=== PATIENT | female | born 1935 | race Caucasian/White ===

== ENCOUNTER 2018-03-22 11:03 | Emergency (ER) | payer OTHER, MEDICARE ==
--- NOTE | 2018-03-22 12:34 | ER ---
Nurse's Notes [facility] Name: Tarsha Daniels Age: 82 yrs Sex: Female : 1935 Arrival Date: 03/22/2018 Time: 11:08 Bed 17 Private MD: Diagnosis: Impacted cerumen, bilateral Presentation: 03/22 11:17 Presenting complaint: Patient states: left ear pain 7/10. Pt. stated, "I have been on rb1 Augmentin for 6 days but it isn't getting any better.". Transition of care: patient was not received from another setting of care. Onset of symptoms is unknown. Initial Sepsis Screen: Does the patient meet any 2 criteria? No. Patient's initial sepsis screen is negative. Does the patient have a suspected source of infection? No. Patient's initial sepsis screen is negative. Care prior to arrival: Medication(s) given: Augmentin. 11:17 Method Of Arrival: Ambulatory rb1 11:17 Acuity: NORA 4 rb1 Triage Assessment: 11:17 General: Appears in no apparent distress. comfortable, Behavior is calm, cooperative. rb1 General: Denies fever. Pain: Complains of pain in left ear Pain currently is 7 out of 10 on a pain scale. Pain began unknown. Neuro: Level of Consciousness is awake, alert, obeys commands, Oriented to person, place, time, situation. Cardiovascular: Capillary refill < 3 seconds is brisk in bilateral fingers. Respiratory: Airway is patent Respiratory effort is even, unlabored, Respiratory pattern is regular, symmetrical. GI: No signs and/or symptoms were reported involving the gastrointestinal system. : No signs and/or symptoms were reported regarding the genitourinary system. Derm: Skin is pink, warm \\T\\ dry. 11:17 EENT: Ear canal no drainage noted to left ear. rb1 Historical: - Allergies: 12:45 Ciprofloxacin; aj1 12:45 Codeine; aj1 12:45 Dilaudid; aj1 12:45 Levaquin; aj1 12:45 Morphine; aj1 12:45 Sulfa (Sulfonamide Antibiotics); aj1 - Home Meds: 12:45 [place] Thyroid 60 mg Oral tab daily [Active]; atenolol 50 mg Oral tab 1 tab once daily aj1 [Active]; Atrovent Inhl [Active]; Miralax 17 gram/dose Oral powd once daily [Active]; - PMHx: 12:45 Asthma; constipation; Hypertension; Hypothyroidism; aj1 - PSHx: 12:45 Bladder suspension; Hernia repair; Appendectomy; Colon Resection; Hysterectomy; aj1 - Immunization history:: Adult Immunizations not up to date. - Social history:: Smoking status: Patient/guardian denies using tobacco. Screenin:17 Abuse screen: Denies threats or abuse. Nutritional screening: No deficits noted. rb1 Tuberculosis screening: No symptoms or risk factors identified. Fall Risk None identified. Assessment: 11:45 General: Appears in no apparent distress. uncomfortable, Behavior is calm, cooperative, aj1 appropriate for age. Pain: Complains of pain in left ear. Neuro: Level of Consciousness is awake, alert, obeys commands, Oriented to person, place, time, situation. Cardiovascular: Patient's skin is warm and dry. Respiratory: Airway is patent Respiratory effort is even, unlabored, Respiratory pattern is regular, symmetrical. GI: No signs and/or symptoms were reported involving the gastrointestinal system. : No signs and/or symptoms were reported regarding the genitourinary system. EENT: Tympanic membrane not visualized left ear due to ear wax . Reports left ear pain. Derm: No signs and/or symptoms reported regarding the dermatologic system. Skin is pink, warm \\T\\ dry. normal. Musculoskeletal: No signs and/or symptoms reported regarding the musculoskeletal system. Circulation, motion, and sensation intact. 12:45 Reassessment: Patient appears in no apparent distress at this time. No changes from aj1 previously documented assessment. Patient and/or family updated on plan of care and expected duration. Pain level reassessed. Patient is alert, oriented x 3, equal unlabored respirations, skin warm/dry/pink. 13:21 Reassessment: Patient appears in no apparent distress at this time. No changes from aj1 previously documented assessment. Patient and/or family updated on plan of care and expected duration. Pain level reassessed. Patient is alert, oriented x 3, equal unlabored respirations, skin warm/dry/pink. Vital Signs: 11:17 BP 142 / 63; Pulse 66; Resp 17; Temp 97.7(O); Pulse Ox 100% on R/A; Weight 72.57 kg rb1 (R); Height 5 ft. 7 in. (170.18 cm) (R); Pain 7/10; 13:22 Pulse 75; Resp 18; Pulse Ox 100% ; aj1 11:17 Body Mass Index 25.06 (72.57 kg, 170.18 cm) rb1 ED Course: 11:08 Patient arrived in ED. sb2 11:13 Sea Beck PA is PHCP. cp 11:14 Jaime Schultz MD is Attending Physician. cp 11:17 Arm band placed on right wrist. rb1 11:17 Patient has correct armband on for positive identification. Bed in low position. Call rb1 light in reach. Side rails up X 1. Pulse ox on. NIBP on. 11:18 Triage completed. rb1 11:30 Joselyn Phillips, RN is Primary Nurse. aj1 12:00 Ear irrigation: Route both ears with Normal Saline Patient tolerated well. aj1 12:45 No provider procedures requiring assistance completed. Patient did not have IV access aj1 during this emergency room visit. Administered Medications: No medications were administered Outcome: 12:33 Discharge ordered by MD. cp 13:22 Discharged to home ambulatory. aj1 13:22 Condition: good 13:22 Discharge instructions given to patient, Instructed on discharge instructions, follow up and referral plans. Demonstrated understanding of instructions, follow-up care. 13:23 Patient left the ED. aj1 Signatures: Joselyn Phillips, RN RN aj1 Sea Beck PA PA cp Barber, Rebecca, RN RN rb1 Danni Thompson sb2
--- NOTE | 2018-03-22 12:34 | EDPHYS ---
Physician Documentation [facility] Name: Tarsha Daniels Age: 82 yrs Sex: Female : 1935 Arrival Date: 03/22/2018 Time: 11:08 Bed 17 Private MD: ED Physician Jaime Schultz HPI: 03/22 11:30 This 82 yrs old Female presents to ER via Ambulatory with complaints of Ear cp Pain. 11:30 The patient presents with pain, that is acute. The complaints affect the left ear. cp Onset: The symptoms/episode began/occurred 6 day(s) ago. Associated signs and symptoms: Pertinent negatives: fever, lightheadedness, rhinorrhea, sinus trouble, shortness of breath, sore throat, vertigo, vomiting. Severity of symptoms: in the emergency department the symptoms are unchanged despite home interventions, patient reports she has been taking Augmentin w/o relief. Historical: - Allergies: 12:45 Ciprofloxacin; aj1 12:45 Codeine; aj1 12:45 Dilaudid; aj1 12:45 Levaquin; aj1 12:45 Morphine; aj1 12:45 Sulfa (Sulfonamide Antibiotics); aj1 - Home Meds: 12:45 [place] Thyroid 60 mg Oral tab daily [Active]; atenolol 50 mg Oral tab 1 tab once daily aj1 [Active]; Atrovent Inhl [Active]; Miralax 17 gram/dose Oral powd once daily [Active]; - PMHx: 12:45 Asthma; constipation; Hypertension; Hypothyroidism; aj1 - PSHx: 12:45 Bladder suspension; Hernia repair; Appendectomy; Colon Resection; Hysterectomy; aj1 - Immunization history:: Adult Immunizations not up to date. - Social history:: Smoking status: Patient/guardian denies using tobacco. ROS: 11:33 Eyes: Negative for injury, pain, redness, and discharge. cp 11:33 Constitutional: Negative for body aches, chills, fever, poor PO intake. 11:33 ENT: Positive for ear pain, Negative for drainage from ear(s), sore throat, difficulty swallowing, difficulty handling secretions. 11:33 Respiratory: Negative for cough, shortness of breath, wheezing. 11:33 Abdomen/GI: Negative for abdominal pain, nausea, vomiting, and diarrhea. 11:33 Skin: Negative for cellulitis, rash. 11:33 Neuro: Negative for altered mental status, headache, weakness. 11:33 All other systems are negative. Exam: 11:37 Constitutional: The patient appears in no acute distress, alert, awake, non-toxic, well cp developed, well nourished. 11:37 Head/Face: Normocephalic, atraumatic. cp 11:37 Eyes: Periorbital structures: appear normal, Conjunctiva: normal, no exudate, no injection, Lids and lashes: appear normal, bilaterally. 11:37 ENT: External ear(s): are unremarkable, Ear canal(s): cerumen impaction, that is moderate, bilaterally, erythema, is not appreciated, bilaterally, purulent discharge, is not appreciated, bilaterally, TM's: not visable, because of cerumen, Nose: is normal, Mouth: is normal, Posterior pharynx: is normal, airway is patent, no erythema, no exudate. 11:37 Neck: ROM/movement: is normal, is supple, without pain, no range of motions limitations, no nuchal rigidity, Lymph nodes: no appreciated lymphadenopathy. 11:37 Chest/axilla: Inspection: normal. 11:37 Cardiovascular: Rate: normal. 11:37 Skin: cellulitis, is not appreciated, no rash present. Vital Signs: 11:17 BP 142 / 63; Pulse 66; Resp 17; Temp 97.7(O); Pulse Ox 100% on R/A; Weight 72.57 kg rb1 (R); Height 5 ft. 7 in. (170.18 cm) (R); Pain 7/10; 13:22 Pulse 75; Resp 18; Pulse Ox 100% ; aj1 11:17 Body Mass Index 25.06 (72.57 kg, 170.18 cm) rb1 MDM: 11:14 Patient medically screened. cp 11:30 Differential diagnosis: otitis media, otitis externa, ruptured TM, foreign body, cp cerumen impaction. 12:30 Data reviewed: vital signs, nurses notes, and as a result, I will discharge patient. cp 12:30 Counseling: I had a detailed discussion with the patient and/or guardian regarding: the cp historical points, exam findings, and any diagnostic results supporting the discharge/admit diagnosis, to return to the emergency department if symptoms worsen or persist or if there are any questions or concerns that arise at home, VSS. Ears irrigated by nursing staff and cerumen removed. 03/22 11:23 Order name: Zane. Order: please irrigate bilateral ears; Complete Time: 12:41 cp Administered Medications: No medications were administered Disposition: 16:40 Co-signature as Attending Physician, Jaime Schultz MD. Disposition: 03/22/18 12:33 Discharged to Home. Impression: Impacted cerumen, bilateral. - Condition is Stable. - Discharge Instructions: Cerumen Impaction, Ear Drops, Adult. - Medication Reconciliation Form, Thank You Letter, Antibiotic Education, Prescription Opioid Use form. - Follow up: Private Physician; When: 2 - 3 days; Reason: if symptoms continue. - Problem is new. - Symptoms have improved. Signatures: Joselyn Phillips, RN RN aj1 Sea Beck PA PA cp Barber, Rebecca, RN RN rb1 Jaime Schultz MD MD
[2018-03-22 13:37] VITALS: BP 142/63; TEMP 97.7; O2SAT 100
== END 2018-03-22 13:23 | disposition home or self-care (01) ==
LOC: ER 11:03
PROC: 3E1B78Z Irrigation of Ear using Irrigating Substance, Via Natural or Artificial Opening (ICD-10-PCS; principal; 2018-03-22)
PROC: 3E1B78Z Irrigation of Ear using Irrigating Substance, Via Natural or Artificial Opening (ICD-10-PCS; 2018-03-22)
DX: H61.23 Impacted cerumen, bilateral (principal); I10 Essential (primary) hypertension; E03.9 Hypothyroidism, unspecified; Z88.1 Allergy status to other antibiotic agents; Z88.2 Allergy status to sulfonamides; Z88.5 Allergy status to narcotic agent
CPT/HCPCS: 99283